=== PATIENT | female | born 1940 | race Caucasian/White ===

== ENCOUNTER 2021-10-31 19:42 | Emergency (ER) | payer MEDICARE, OTHER ==
[~2021-10-31] VITALS: Ht 167.6 cm; Wt 75.3 kg
[2021-10-31] MEDS ORDERED: LIPITOR20 MG (19:53)
[2021-10-31] MEDS ORDERED: HYDROCODON-ACE1 EA10 PO (22:38)
--- NOTE | 2021-11-01 15:18 | EKG ---
[facility] [address] [facility] [place], [place] [address] Signed Normal sinus rhythm Normal ECG No previous ECGs available Confirmed by GERMANIA DAVID MD ([id number] on 11/01/2021 3:18:25 PM Electronically Signed By: GERMANIA DAVID MD 11/01/21 1518 PATIENT NAME: AJNEETU Wise Electrocardiogram DATE OF : 44 PHYSICIAN: GERMANIA DAVID MD REPORT #: [id number] REPORT IS CONFIDENTIAL AND NOT TO BE RELEASED WITHOUT AUTHORIZATION
== END 2021-10-31 23:09 | disposition home or self-care (01) ==
LOC: ED 19:42
DX: R07.89 Other chest pain (principal); E78.5 Hyperlipidemia, unspecified; Z88.0 Allergy status to penicillin; Z88.1 Allergy status to other antibiotic agents; Z79.899 Other long term (current) drug therapy
CPT/HCPCS: 36415; 71045; 71260; 80053; 83735; 84484; 85025; 85379; 85610; 85730; 93005; 93010; 99285-25; A9270; J1170; J1885; J2405; Q9967